=== PATIENT | male | born 1995 | race Caucasian/White ===

== ENCOUNTER 2024-07-21 17:30 | Emergency (ER) | payer OTHER, SELFPAY ==
[2024-07-21 17:31] VITALS: BP 121/71
[2024-07-21 18:09] VITALS: BMI 20.3
[2024-07-21 18:15] VITALS: BP 108/72
--- NOTE | 2024-07-21 18:47 | ED.GENMED ---
History of Present Illness
General
Chief Complaint: Cold/Flu/URI Symptoms
Time Seen by Provider: 07/21/24 18:14
History of Present Illness
History of Present Illness:
See MDM
Phy Exam
Physical Exam
Physical Exam:
See MDM
Course
Orders/Labs/Results
Orders:
Orders
07/21/24 18:07
CXR2 [CR Chest - 2 Views ] Urgent
Comment:
Reason For Exam: cough
07/21/24 18:18
COVID-19 Antigen Urgent
Source: Nasal Swab
Influenza A+B Rapid Molecular Urgent
ADRIENNE Source: Nasal Swab
Specimen Description:
07/21/24 18:44
Amoxicillin [Amoxil] 500 mg PO NOW STA
Dexamethasone Pf [Decadron] 10 mg PO NOW STA
Ketorolac [Toradol] 30 mg IM NOW STA
Vital Signs
Initial and Last Documented VS:
Initial Vital Signs
Temp Pulse Resp BP Pulse Ox
97.6 F 70 20 121/71 100
07/21/24 17:31 07/21/24 17:31 07/21/24 17:31 07/21/24 17:31 07/21/24 17:31
Last Documented Vital Signs
Temp Pulse Resp BP Pulse Ox
98.4 F 61 18 108/72 100
07/21/24 18:15 07/21/24 18:15 07/21/24 18:15 07/21/24 18:15 07/21/24 18:15
MDM/Problems Addressed
Differential Diagnosis Includes:
Note:
CHIEF COMPLAINT(S)
- Cough, sore throat, and headache.
HISTORY OF PRESENT ILLNESS
The patient is a 28-year-old male who presented with a primary complaint of headache. The patient reported that the headache started approximately two days ago, coinciding with the waning of a fever. The cough and sore throat began earlier in the
week, around Thursday. The patient described the sore throat as particularly severe, with pain on swallowing. He mentioned 'a crazy headache' that has been progressively worsening, limiting his daily activities, and necessitating bed rest. There is no
report of rash but was concerned about the potential severity and was prompted to seek care after the reassurances from an online source provided limited relief. The patient has redness and multiple dots in the throat, suggestive of pharyngitis.
PHYSICAL EXAM
General: Well appearing and non-toxic
HEENT: protecting airway. Posterior pharynx erythema and mild exudate. Uvula midline
Neck: appears supple
CV: No evidence of cyanosis
Resp: No accessory muscle use. Lungs clear
Abd: Non-distended
Extremities: No deformities
Neuro: alert
Psych: Normal affect
Skin: Intact
- Nursing notes reviewed and vital signs reviewed.
PROBLEM LIST
Acute Problems:
- Acute pharyngitis
- Headache
PLAN
- Administer a one-time dose of the steroid dexamethasone (decadron) to help with swelling and pain.
- Administer a shot of pain medication.
- Prescribe antibiotics to address potential bacterial infection.
DIFFERENTIAL DIAGNOSIS
The Differential Diagnosis includes, in no particular order and is not limited to:
1. Viral Pharyngitis
2. Streptococcal Pharyngitis
3. Sinusitis
4. Upper Respiratory Tract Infection
5. Mononucleosis
6. Bacterial Tonsillitis
7. Dehydration-induced Headache
8. Migraine
9. Tension-type Headache
10. Allergic Rhinitis
Disposition:
SUMMARY OF ENCOUNTER
The patient, a 28-year-old male, was seen in the emergency department mainly for complaints of headache, cough, and sore throat. The headache began worsening two days prior, coinciding with the subsiding of a fever. The sore throat, severe with
painful swallowing, and cough started earlier in the week. Upon examination, the throat was red with multiple dots, indicating infection. Suspected diagnoses included viral pharyngitis and streptococcal pharyngitis. After assessing the severity and
considering the differential diagnosis, a decision was made to treat the patient to alleviate symptoms and address potential bacterial infection.
ASSESSMENT
The patient is likely experiencing acute pharyngitis with a possible bacterial component, alongside a severe headache that could be related to sinusitis or dehydration.
EMERGENCY TREATMENTS ADMINISTERED
Dexamethasone (Decadron) was administered to reduce inflammation and throat pain. An intramuscular dose of Toradol was given for pain management.
PLAN
The plan included administering a one-time dose of dexamethasone for swelling and pain relief in the throat. An IM shot of Toradol was given for headache relief. The patient was prescribed antibiotics to address suspected streptococcal pharyngitis.
PATIENT EDUCATION AND COUNSELING
The patient was informed about the treatment plan, and the likelihood of a bacterial infection necessitating antibiotic therapy was explained. Further, the headache was discussed, and the reasons for not proceeding with a CT scan were elaborated,
including low suspicion for intracranial hemorrhage or mass.
MEDICATION RECONCILIATION
- Dexamethasone administered for inflammation and soreness.
- Intramuscular Toradol administered for pain relief.
- Antibiotics prescribed for potential streptococcal infection.
MEDICAL DECISION MAKING
Number and Complexity of Problems Addressed: The patients symptoms required evaluation for both potential viral and bacterial infections, as well as headache etiology. Considering differential diagnoses like viral pharyngitis and streptococcal
pharyngitis, the treatment plan was initiated to address these.
Data: The differential diagnosis and patients symptoms guided the treatment plan creation, including administering appropriate medications to address infection and pain.
Risk: The decision against a CT scan took into account the low risk of severe intracranial pathology, optimizing the patients care without unnecessary radiation exposure.
*Critical Care Note
Total Time (30-74mins, 75-104mins- exclusive of procedures): Not Applicable
ED Attending Note
-
Portions of this chart may have been created with voice recognition software.� Occasional wrong word or��sound alike� substitutions may have occurred due to the inherent limitations of voice recognition software.
Discharge Plan
Departure
Patient Disposition: Home (Routine Discharge)
Date of Disposition: 07/21/24
Time of Disposition: 18:47
Patient with high blood pressure during this ER visit?: No
Discharge Problem:
Pharyngitis, acute
Instructions: Strep throat - ED discharge instructions
Prescriptions:
New
amoxicillin 500 mg capsule
500 mg PO BID Qty: 14 0RF
Activity Restrictions/Additional Instructions:
Please return for any worsening symptoms.
You may return at any time if you have further concerns.
Please follow up with your doctor at the first available appointment, preferably this week.
Thank you for choosing [facility].
Interventions
Interventions:
*Risk Screen - Suicide Last Done: 07/21/24 17:31
*General Assessment Last Done: 07/21/24 17:31
*Neglect/Abuse Screening Last Done: 07/21/24 17:31
*ED- Fall Risk Assessment Last Done: 07/21/24 18:09
*ED COVID-19 Vaccine History Last Done: 07/21/24 18:09
ED- Pulmonary Assessment Last Done: 07/21/24 18:09
Discharge Date and Time
Print Language: CITIZEN OF [place]
[2024-07-21 18:54] LABS: COVID-19 Antigen Negative (Negative)
[2024-07-21] MEDS: DECADRON 10 MG PO (18:57)
[2024-07-21] MEDS: AMOXIL 500 MG PO (18:57)
[2024-07-21] MEDS: TORADOL 30 MG IM (18:57)
[2024-07-21 19:01] VITALS: BP 100/58
== END 2024-07-21 19:20 | disposition home or self-care (01) ==
LOC: EMR 17:30
PROVIDERS: EMERGENCY PHYSICIAN Student in an Organized Health Care Education/Training Program
DX: J02.9 Acute pharyngitis, unspecified (principal); Z11.52 Encounter for screening for COVID-19
CPT/HCPCS: 99284; 96372; 71046; 87502; 87811